=== PATIENT | female | born 1990 | race Caucasian/White ===

== ENCOUNTER 2018-08-09 22:26 | Emergency (ER) | payer OTHER ==
[~2018-08-09] VITALS: Ht 162.6 cm; Wt 77.3 kg
[~2018-08-09 22:26] MED LIST: IBU600 MG PO; PERCOCET 325 MG1 TA2 PO; PRENATAL
[2018-08-09 22:35] VITALS: TEMP 98
[2018-08-09 23:33] LABS: BASO % 0.3 % (0.0-2.0); EOS # 0.1 (0.0-0.7); EOS % 0.7 % (0-4.0); GRAN # 12.7 (1.4-6.5); GRAN % 85.2 % (42.2-75.2); HEMATOCRIT 37.4 % (37.0-47.0); LYMPH % 6.5 % (20.0-51.0); MEAN CELL VOLUME 90 fl (80.0-100.0); MEAN CORPUSCULAR HEMOGLOBIN 31 pg (27.0-31.0); MEAN CORPUSCULAR HGB CONC 35 g/dl (33.0-37.0); MEAN PLATELET VOLUME 10.1 fl (7.4-10.4); MONO % 6.9 % (1.7-9.3); PLATELET COUNT 238 K/mm3 (130-400); RED BLOOD COUNT 4.18 M/mm3 (4.10-5.30); REDCELL DISTRIBUTION WIDTH-CV 12.6 % (11.5-14.5)
[2018-08-09 23:45] LABS: BILIRUBIN,TOTAL 0.2 mg/dL (0.0-1.0); C-REACTIVE PROTEIN 0.7 mg/dL (0.0-0.9); CALCIUM 9.7 mg/dL (8.4-10.2); CREATININE, serum 0.63 mg/dL (0.52-1.25); POTASSIUM 3.6 mmol/L (3.4-5.0); TOTAL PROTEIN 7.3 gm/dL (6.4-8.2)
[2018-08-10] MEDS ORDERED: ANUSOL HC CREAM30 GM TP (00:34)
[2018-08-10 01:00] VITALS: BP 115/61; PULSE 78
== END 2018-08-10 01:00 | disposition home or self-care (01) ==
LOC: COL.ER 22:26
PROVIDERS: Emergency Medicine
DX: O22.41 Hemorrhoids in pregnancy, first trimester (principal); O26.891 Other specified pregnancy related conditions, first trimester; R19.7 Diarrhea, unspecified; Z3A.11 11 weeks gestation of pregnancy; Z98.890 Other specified postprocedural states; Z90.89 Acquired absence of other organs
CPT/HCPCS: J7030

== ENCOUNTER 2019-03-02 05:29 | Inpatient (IN) | payer OTHER ==
[2019-03-02] VITALS (17 sets, daily range): BP systolic 104–140; BP diastolic 55–825; PULSE 67–88; TEMP 98–98.4
[~2019-03-02] VITALS: Ht 162.6 cm; Wt 91.4 kg
[~2019-03-02 05:29] MED LIST changes: +ANUSOL HC CREAM30 GM TP
[2019-03-02 06:32] LABS: BASO # 0.1 (0.0-0.2); BASO % 0.5 % (0.0-2.0); EOS # 0.2 (0.0-0.7); EOS % 1.5 % (0-4.0); GRAN # 7.9 (1.4-6.5); GRAN % 72.6 % (42.2-75.2); HEMATOCRIT 35.3 % (37.0-47.0); HEMOGLOBIN 12.1 g/dl (12.5-16.0); LYMPH # 1.7 (1.2-3.4); LYMPH % 15.9 % (20.0-51.0); MEAN CELL VOLUME 95 fl (80.0-100.0); MEAN CORPUSCULAR HEMOGLOBIN 33 pg (27.0-31.0); MEAN CORPUSCULAR HGB CONC 34 g/dl (33.0-37.0); MEAN PLATELET VOLUME 10.6 fl (7.4-10.4); MONO # 0.9 (0.1-0.6); MONO % 8.2 % (1.7-9.3); PLATELET COUNT 191 K/mm3 (130-400); RED BLOOD COUNT 3.72 M/mm3 (4.10-5.30); REDCELL DISTRIBUTION WIDTH-CV 13.2 % (11.5-14.5)
[2019-03-03 02:30] VITALS: BP 110/67; PULSE 75; TEMP 98.4
[2019-03-03 07:30] VITALS: BP 97/46; PULSE 79; TEMP 98.2
--- NOTE | 2019-03-03 07:30 | NUR ---
Rests in bed, alert. Request pain medication. 0740 Percocet 5/325 mg given as per request and as ordered. Denies other needs.
[2019-03-03 07:34] LABS: HEMOGLOBIN 10.5 g/dl (12.5-16.0)
[2019-03-03 07:38] LABS: HEMATOCRIT 31.4 % (37.0-47.0)
--- NOTE | 2019-03-03 10:40 | NUR ---
Initial visit; Parents thanked Regional Economist for offering congratulations and God's blessings for the of their daughter. Regional Economist thanked family for choosing [facility].
[2019-03-03 16:00] VITALS: BP 116/67; PULSE 90; TEMP 97.3
--- NOTE | 2019-03-03 16:00 | NUR ---
Rests in bed, alert. Request pain medication. Percocet 5/325 mg two, motrin 600 mg. given as ordered.
[2019-03-03 20:30] VITALS: BP 124/76; PULSE 82; TEMP 97.8
[2019-03-04 08:10] VITALS: BP 117/68; PULSE 76; TEMP 97.8
[2019-03-04] MEDS ORDERED: PERCOCET 325 MG1 TA2 PO (08:56)
[2019-03-04] MEDS ORDERED: IBU600 MG PO (08:56)
[2019-03-04 10:50] LABS: COLLECTION METHOD CLEAN CATCH
[2019-03-04 10:59] LABS: MUCOUS Present /lpf; PH 6 (5-8); URINE APPEARANCE Hazy; URINE BACTERIA Rare /hpf; URINE BILIRUBIN Negative (NEGATIVE); URINE BLOOD 3+ (NEGATIVE); URINE COLOR Yellow; URINE GLUCOSE Negative (NEGATIVE); URINE KETONE Negative (NEGATIVE); URINE LEUKOCYTE ESTERASE Negative (NEGATIVE); URINE NITRATE Negative (NEGATIVE); URINE PROTEIN(semi-quant) Negative (NEGATIVE); URINE RBC >50 /hpf; URINE UROBILINOGEN Negative (NEGATIVE)
== END 2019-03-04 11:45 | disposition home or self-care (01) | DRG 788 ==
LOC: OB 05:29 → LDR 14:11 → OB 03-04 11:45
PROVIDERS: ADMIT Obstetrics & Gynecology
PROC: 10D00Z1 Extraction of Products of Conception, Low, Open Approach (ICD-10-PCS; principal; 2019-03-02)
DX: O34.211 Maternal care for low transverse scar from previous cesarean delivery (principal); O99.02 Anemia complicating childbirth; D64.9 Anemia, unspecified; Z3A.40 40 weeks gestation of pregnancy; Z37.0 Single live birth
CPT/HCPCS: J0690; J1885; J2175; J2370; J2405; J2590; J3010; J7120

== ENCOUNTER 2020-11-07 08:45 | Inpatient (IN) | payer OTHER ==
[~2020-11-07] VITALS: Ht 162.7 cm; Wt 91.8 kg
[2020-11-07] VITALS (17 sets, daily range): BP systolic 90–120; BP diastolic 57–72; PULSE 72–99; TEMP 97.4–98.1
[~2020-11-07 08:45] MED LIST changes: -NATURAL IRON65 MG
[2020-11-07] MEDS ORDERED: NATURAL IRON65 MG (09:41)
[2020-11-07 11:07] LABS: HEMATOCRIT 39.4 % (37.0-47.0); MEAN CELL VOLUME 91 fl (80.0-100.0); MEAN CORPUSCULAR HEMOGLOBIN 30 pg (27.0-31.0); MEAN CORPUSCULAR HGB CONC 33 g/dl (33.0-37.0); MEAN PLATELET VOLUME 10.2 fl (7.4-10.4); PLATELET COUNT 203 K/mm3 (130-400); RED BLOOD COUNT 4.33 M/mm3 (4.10-5.30); REDCELL DISTRIBUTION WIDTH-CV 15.1 % (11.5-14.5)
[2020-11-07 11:37] LABS: BAND 9 % (0-10); EOSINOPHIL 2 % (0-4); LYMPHOCYTE 20 % (20.0-51.0); NEUTROPHILS 61 % (42.0-75.2); PLATELET ESTIMATE NORMAL (NORMAL)
[2020-11-08 02:42] VITALS: BP 109/68; PULSE 67; TEMP 98.5
[2020-11-08 07:31] LABS: HEMOGLOBIN 11.7 g/dl (12.5-16.0)
[2020-11-08 07:39] VITALS: BP 106/67; PULSE 72; TEMP 97.3
[2020-11-08 07:39] LABS: HEMATOCRIT 34.9 % (37.0-47.0)
--- NOTE | 2020-11-08 09:47 | NUR ---
Initial visit; Patient thanked Miniature Train Driver for offering congratulations and God's blessings for the of her daughter. Miniature Train Driver thanked Mom for choosing [facility].
--- NOTE | 2020-11-08 12:30 | NUR ---
Pt sitting in chair resting. Shift assessment complete. Baby and spouse resting at this time. Abdominal incision CDI. Pt reports minimal vaginal bleeding and voids independently.
[2020-11-08 15:55] VITALS: BP 112/54; PULSE 74; TEMP 98.1
[2020-11-08 20:00] VITALS: BP 109/63; PULSE 84; TEMP 97.7
[2020-11-09 08:30] VITALS: BP 121/75; PULSE 73; TEMP 98.1
[2020-11-09] MEDS ORDERED: PERCOCET 325 MG1 TA2 PO (08:57)
[2020-11-09] MEDS ORDERED: IBU600 MG PO (08:57)
--- NOTE | 2020-11-09 10:54 | NUR ---
DISCHARGE INFORMATION GIVEN AT THIS TIME. ALL QUESTIONS ANSWERED. NO CONERNS FROM PATIENT. MOTRIN SCRIPT SENT TO PHARMACY. PERCOCET SCRIPT HANDED TO PATIENT.
== END 2020-11-09 11:00 | disposition home or self-care (01) | DRG 788 ==
LOC: OB 08:45
PROVIDERS: ADMIT Obstetrics & Gynecology
PROC: 10D00Z1 Extraction of Products of Conception, Low, Open Approach (ICD-10-PCS; principal; 2020-11-07)
DX: O34.219 Maternal care for unspecified type scar from previous cesarean delivery (principal); O69.81X0 Labor and delivery complicated by cord around neck, without compression, not applicable or unspecified; Z3A.39 39 weeks gestation of pregnancy; Z37.0 Single live birth; O99.02 Anemia complicating childbirth; D64.9 Anemia, unspecified
CPT/HCPCS: J0690; J1100; J1885; J2370; J2405; J2590; J7120

== ENCOUNTER → 2020-11-07 | Outpatient (CLI) | payer OTHER ==
[~2020-11-07] MED LIST changes: +NATURAL IRON65 MG
== END | disposition still patient (30) ==
LOC: ZCOL.LAB 11-02 04:41
DX: Z20.822 Contact with and (suspected) exposure to COVID-19 (principal)